=== PATIENT | male | born 1940 | race Caucasian/White ===

== ENCOUNTER → 2016-11-02 14:23 | Outpatient (CLI) | payer MEDICARE ==
[2015-07-03 12:58] VITALS: BMI 43.5
[~2016-11-02 14:23] MED LIST: AMBIEN10 MG PO; COZAAR50 MG PO; FLOMAX0.4 MG PO; LEVOTHYROXINE50 MCG PO; MULTIPLE VITAMI1 TA1; NEXIUM40 MG; NORVASC5 MG PO; POTASSIUM99 M1 PO; PROBIOTIC1 EAC1 PO; TRICOR145 MG PO
== END | disposition home or self-care (01) ==
LOC: D.MRI 14:23
DX: M25.511 Pain in right shoulder (principal)

== ENCOUNTER 2016-12-03 07:26 | Day surgery (SDC) | payer MEDICARE ==
[~2016-12-03] VITALS: Ht 167.6 cm; Wt 118.2 kg
[~2016-12-03 07:26] MED LIST changes: -AMBIEN10 MG PO; -FLOMAX0.4 MG PO; -LEVOTHYROXINE50 MCG PO; -NORVASC5 MG PO; -POTASSIUM99 M1 PO; -PROBIOTIC1 EAC1 PO
[2016-12-03] MEDS ORDERED: AMBIEN10 MG PO (08:30)
[2016-12-03] MEDS ORDERED: LEVOTHYROXINE50 MCG PO (08:31)
[2016-12-03] MEDS ORDERED: NORVASC5 MG PO (08:32)
[2016-12-03] MEDS ORDERED: FLOMAX0.4 MG PO (08:32)
[2016-12-03] MEDS ORDERED: POTASSIUM99 M1 PO (08:33)
[2016-12-03] MEDS ORDERED: PROBIOTIC1 EAC1 PO (08:34)
[2016-12-03 08:46] VITALS: BP 136/88; Ht 167.6 cm; Wt 118.2 kg
[2016-12-03 08:54] LABS: BASOPHILS 0.6 % (0.0-2.0); EOSINOPHILS 5.2 % (0-7); HEMATOCRIT 42.6 % (42.0-54.0); HEMOGLOBIN 14.4 g/dL (13.5-17.5); IMMATURE GRANULOCYTES 0.2 % (0-5); LYMPHOCYTES 28.6 % (15-50); MCH 30.8 pg (26.0-34.0); MCHC 33.8 g/dL (31.0-37.0); MCV 91.2 fL (80.0-100.0); MEAN PLATELET VOLUME 10.9 fL (7.4-10.4); MONOCYTES 11.3 % (2-11); NEUTROPHILS 54.1 % (40-80); PLATELET COUNT 177 10x3/uL (130-400); RBC 4.67 10x6/uL (4.20-6.10); RDW 13.4 % (11.5-14.5)
[2016-12-03 09:02] LABS: APTT 26.7 SECONDS (22.8-39.4); INR 1.08 (0.85-1.17); PROTIME 13.9 SECONDS (11.6-15.0)
--- NOTE | 2016-12-04 18:58 | OP ---
PATIENT NAME: PAM TAY MEDICAL RECORD: [id number] :38 LOCATION:[facility] ADMISSION DATE: SURGEON: JAZMINE DAY MD DATE OF OPERATION: 12/03/2016 REFERRING PHYSICIAN: Thomas Quinonez MD PREOPERATIVE DIAGNOSIS: Gastroesophageal reflux disease with recent exacerbation of symptoms. ADDITIONAL PAST HISTORY: Personal history of lymphoma, now in remission, history of alcohol abuse and at least 1 episode acute alcoholic pancreatitis. OPERATION PERFORMED: EGD with biopsies of the esophageal and gastric antral mucosa, as well as endoscopic biopsy and removal of a pedunculated gastric polyp from the body of the stomach. SURGEON: Jazmine Day MD ANESTHESIA: TIVA per DIRECTOR OF PHYSICAL SECURITY. PREOPERATIVE NOTE: Mr. Pam Tay is a 76-year-old white male patient referred by Dr. Quinonez. The patient lives in [place]. He is obese, has a history of alcohol abuse, though is believed to presently be abstinent from alcohol, has a history of treatment for lymphoma and is in remission or thought to be in remission for that and followed at [facility]. He has a long history of GERD symptoms controlled with PPI medication for a number of years. He recently suffered an exacerbation of his GERD symptomatology and Dr. Quinonez had him to increase his Nexium from 40 mg daily to 40 mg b.i.d., although the patient tells me he has been taking 80 mg once a day in the evening. The patient was brought to the GI lab at this time for an endoscopic examination, has been quite a few years since he has had an EGD. There is no recent history of any exacerbation of pancreatitis or hematemesis, nausea and vomiting, change in bowel habit, etc., although the patient is presently overdue for surveillance colonoscopy. PROCEDURE IN DETAIL: With the patient under TIVA and after the pharynx was sprayed with benzocaine, I was able to easily pass the Olympus gastroscope through the pharynx and the upper esophageal sphincter. The esophagus over its entire length, demonstrated some scattered mucosal nodularity and some white curd material adherent to the surface of the mucosa, all consistent with esophageal candidiasis. There was no evidence of any esophageal erosions, stricture ulceration or linear erythematous streaking. The Z line was irregular though it did not appear to be a short segment Ward's situation. I saw no other clear Ward's esophageal changes and there was no significant hiatus hernia present, the GE junction being located in the level of the diaphragm at 40 cm from the incisors. The stomach was entered and insufflated and the rugal folds noted to be somewhat hypertrophic. There is distal antral prepyloric linear erythematous streaking and rather diffuse nodularity of the gastric mucosa consistent with diffuse fundic polyposis. There was a pedunculated polyp on the anterior wall of the proximal body of the stomach near the lesser curvature. This was about 1.5 cm in diameter. This was biopsied with electrocautery forceps and the pedicle of the ulcer coagulated and the ulcer was then easily removed by traction. The polyp was totally recovered and sent him OPERATIVE REPORT [id number] PAM TAY for histologic study. It appeared to had a benign appearance. There was no evidence of bleeding. The scope was reinserted and the biopsy polypectomy site reexamined and again there was no significant bleeding. The scope was passed then distally through the portion of the first and second portions of the duodenum, which were normal in appearance. There was no duodenitis or ulceration. I did not biopsied the duodenal mucosa. The scope was pulled back up in the esophagus and multiple biopsies of the distal esophageal mucosa were obtained. Insufflated air in the stomach was then suctioned away and the scope withdrawn. The patient tolerated the procedure well and although he did require some maintenance of his airway manually by the woodworking shop hand. The patient likely has sleep apnea, but certainly has a body habitus which one would lead one to worry about that. The patient will be discharged from the outpatient department today. I am going to ask him to continue his Nexium. Only he is to take it 40 mg twice a day morning and evening. He will continue his routine antireflux measures and dietary instructions as per Dr. Quinonez. I will have him return to see me in my office within the next 1-2 weeks to discuss the results of the pathology on the gastric polypectomy and the gastric biopsies. An additional finding was some prominence of the mucosal folds in the gastric cardia and what appeared to perhaps represent a submucosal gastric varices, which would be consistent with the patient's history of alcoholism and pancreatitis and perhaps indicate the presence of portal hypertension, possibly due to alcoholic cirrhosis, plus or minus nonalcoholic hepatitis. In the future, hopefully the patient's symptoms can be controlled with reduced dosages of PPIs, perhaps by adding oral antacids or sucralfate and H2 receptor blockers. He is to of course continue strict abstinence from alcohol and avoid ASA and other NSAIDs. Biopsy of the antral mucosa was sent for CLOtest as well as for histology and should either or both studies indicate the presence of Helicobacter pylori infection. He will course need additional antibiotic treatments to clear that. However at this point, I do not plan a routine repeat surveillance endoscopy, but of course will perhaps change depending on the results of the biopsies and the patient's symptoms and response to treatment. TRANSINT:[id number] Voice Confirmation ID: [id number] DOCUMENT ID: [id number] JAZMINE DAY MD at 1858 CC: THOMAS QUINONEZ MD [id number] DICTATION DATE: 12/04/16 1054 MANAGER OF FINANCIAL: 12/04/16 1500 [facility] 12/03/16 [facility] [address] [place] [address]
== END 2016-12-03 12:20 | disposition home or self-care (01) ==
LOC: D.OPS 07:26
PROVIDERS: Anesthesiology
DX: K21.9 Gastro-esophageal reflux disease without esophagitis (principal); I10 Essential (primary) hypertension; E78.5 Hyperlipidemia, unspecified; I25.10 Atherosclerotic heart disease of native coronary artery without angina pectoris; E66.9 Obesity, unspecified; M19.90 Unspecified osteoarthritis, unspecified site; E03.9 Hypothyroidism, unspecified; Z68.41 Body mass index [BMI] 40.0-44.9, adult; Z85.72 Personal history of non-Hodgkin lymphomas

== ENCOUNTER → 2017-01-21 09:19 | Outpatient (CLI) | payer MEDICARE ==
[2016-12-03 08:46] VITALS: BMI 42.0
[~2017-01-21 09:19] MED LIST changes: +AMBIEN10 MG PO; +FLOMAX0.4 MG PO; +LEVOTHYROXINE50 MCG PO; +NORVASC5 MG PO; +POTASSIUM99 M1 PO; +PROBIOTIC1 EAC1 PO
== END | disposition home or self-care (01) ==
LOC: D.RAD 01-20 09:30
DX: R13.10 Dysphagia, unspecified (principal)

== ENCOUNTER → 2018-01-25 11:23 | Outpatient (CLI) | payer MEDICARE ==
[2016-12-03 08:46] VITALS: BMI 42.0
== END | disposition home or self-care (01) ==
LOC: D.MRI 11:23
DX: I67.1 Cerebral aneurysm, nonruptured (principal)

== ENCOUNTER → 2019-10-05 12:11 | Outpatient (CLI) | payer MEDICARE ==
[2016-12-03 08:46] VITALS: BMI 42.0
== END | disposition home or self-care (01) ==
LOC: D.MRI 12:11
PROVIDERS: ATTEND Family Medicine
DX: M54.9 Dorsalgia, unspecified (principal)